=== PATIENT | female | born 1960 | race African-American/Black ===

== ENCOUNTER 2020-11-22 08:54 | Day surgery (SDC) | payer OTHER ==
[~2020-11-22] VITALS: Ht 167.6 cm; Wt 98.0 kg
[~2020-11-22 08:54] MED LIST: CIPROFLOXACIN 0.3% OPHTH SOLUTION 5ML BOTTLE. OD ONE; LIDOCAINE 2% JELLY 6ML IN APPLICATOR. OD ONE; PROPARACAINE 0.5% OPHTH SOLUTION 15ML BOTTLE. OD ONE
[2020-11-22] MEDS ORDERED: LIDOCAINE 1%/PHENYLEPH 1.5% PF OPHTH 1 ML VIAL. ONE (09:04)
[2020-11-22] MEDS ORDERED: NEO/POLYMYX/DEXAMETH OPHTH OINTMENT 3.5GM TUBE. ONE (09:04)
[2020-11-22] MEDS ORDERED: CHONDROIT-SOD-HYALURONATE KIT. ONE (09:04)
[2020-11-22] MEDS: PHENYLEPHRINE 10% OPHTH SOLUTION 5ML BOTTLE. OD SCH ×3 (10:00→10:10)
[2020-11-22] MEDS: CYCLOPENTOLATE 1% OPHTH SOLUTION 2ML BOTTLE. OD SCH ×3 (10:00→10:10)
[2020-11-22] MEDS ORDERED: IV RINGERS,LACTATED 1000ML 1,000 ML IV SCH (10:15)
[2020-11-22] MEDS ORDERED: MIDAZOLAM HCL/PF 2 MG/2 ML VIAL. ONE (11:16)
[2020-11-22 12:00] VITALS: BP 169/82
--- NOTE | 2020-11-22 13:53 | OP ---
DATE OF SURGERY: 11/22/2020 PREOPERATIVE DIAGNOSIS: Senile cataract, right eye. POSTOPERATIVE DIAGNOSIS: Senile cataract, right eye. PROCEDURE: Phacoemulsification with posterior chamber lens implant, right eye. ANESTHESIA: Local with MAC. DESCRIPTION OF PROCEDURE: The patient's anesthetic and dilating drops were applied in the outpatient department. A [place] balloon cuff was used for about 10 minutes. The patient was then brought to the operating room, positioned on the table in the operating room and the right eye was prepped and draped in the usual sterile manner for an intraocular procedure. A lid speculum was placed between the eyelids and the operating microscope was brought into position. Then, it was noted there was very good pupillary dilation. A paracentesis incision was made superotemporally and an injection of ____ made into the anterior chamber. This was followed by an injection of Viscoat. The primary 2.4 mm incision was then made temporally. Capsulorrhexis was performed without difficulty and the lens hydrodissected. The nucleus was then phacoemulsified without difficulty with the phaco handpiece. Remaining cortex was aspirated with the I/A handpiece. Provisc was used to insufflate the bag and a posterior chamber lens of 11.5 diopters was performed. The lens was rotated into the appropriate position and the Provisc was then aspirated with the I/A handpiece. The eye was then insufflated and pressurized and the wound checked for leaks and there were none. The speculum and drape were removed and Maxitrol ointment instilled in the conjunctival sac and the eye was shielded. The patient was taken to recovery room in satisfactory condition. There were no complications and I will see the patient tomorrow in my office. STACEY/KETTY/[facility] [place]: STACEY/serafin TID: [id number]
== END 2020-11-22 13:10 | disposition home or self-care (01) ==
LOC: SURG 08:54
PROVIDERS: ATTEND Ophthalmology
DX: H25.89 Other age-related cataract (principal); I10 Essential (primary) hypertension; M19.90 Unspecified osteoarthritis, unspecified site; F41.9 Anxiety disorder, unspecified; F32.9 Major depressive disorder, single episode, unspecified; Z90.710 Acquired absence of both cervix and uterus; Z98.890 Other specified postprocedural states; Z79.899 Other long term (current) drug therapy; Z88.2 Allergy status to sulfonamides; Z88.1 Allergy status to other antibiotic agents; Z20.822 Contact with and (suspected) exposure to COVID-19
CPT/HCPCS: 66984; 87426; J0171; J2250; J3490; V2632

== ENCOUNTER 2020-12-06 10:25 | Day surgery (SDC) | payer OTHER ==
[~2020-12-06] VITALS: Ht 167.6 cm; Wt 97.0 kg
[~2020-12-06 10:25] MED LIST changes: -CIPROFLOXACIN 0.3% OPHTH SOLUTION 5ML BOTTLE. OD ONE; +CIPROFLOXACIN 0.3% OPHTH SOLUTION 5ML BOTTLE. OS ONE; +IV RINGERS,LACTATED 1000ML 1,000 ML IV SCH; -LIDOCAINE 2% JELLY 6ML IN APPLICATOR. OD ONE; +LIDOCAINE 2% JELLY 6ML IN APPLICATOR. OS ONE; -PROPARACAINE 0.5% OPHTH SOLUTION 15ML BOTTLE. OD ONE; +PROPARACAINE 0.5% OPHTH SOLUTION 15ML BOTTLE. OS ONE
[2020-12-06] MEDS ORDERED: CHONDROIT-SOD-HYALURONATE KIT. ONE (10:41)
[2020-12-06] MEDS ORDERED: NEO/POLYMYX/DEXAMETH OPHTH OINTMENT 3.5GM TUBE. ONE (10:41)
[2020-12-06] MEDS ORDERED: LIDOCAINE 1%/PHENYLEPH 1.5% PF OPHTH 1 ML VIAL. ONE (10:41)
[2020-12-06] MEDS ORDERED: HYDR-2761 PO (11:02)
[2020-12-06] MEDS ORDERED: LISI10TA16 PO (11:02)
[2020-12-06] MEDS ORDERED: GABA600T7 PO (11:02)
[2020-12-06] MEDS ORDERED: HYDR50CA2 PO (11:02)
[2020-12-06] MEDS ORDERED: ESCITALOPRAM OX20 MG PO (11:02)
[2020-12-06] MEDS ORDERED: MELO15TA23 PO (11:02)
[2020-12-06] MEDS ORDERED: MONT10TA49 PO (11:02)
[2020-12-06] MEDS ORDERED: ATOR10TA60 PO (11:02)
[2020-12-06] MEDS: CYCLOPENTOLATE 2% OPHTH SOLUTION 2ML BOTTLE. OS SCH ×3 (11:05→11:15)
[2020-12-06] MEDS: PHENYLEPHRINE 10% OPHTH SOLUTION 5ML BOTTLE. OS SCH ×2 (11:05→11:15)
[2020-12-06 11:08] VITALS: BP 164/77
[2020-12-06] MEDS ORDERED: MIDAZOLAM HCL/PF 2 MG/2 ML VIAL. ONE (12:12)
[2020-12-06] MEDS ORDERED: ePHEDrine PF IN SALINE 50 MG/10 ML SYRINGE. IV ONE (12:12)
[2020-12-06] MEDS ORDERED: NEO/POLYMYX/DEXAMETH OPHTH OINTMENT 3.5GM TUBE. OS ONE (12:23)
[2020-12-06] MEDS ORDERED: LIDOCAINE 1%/PHENYLEPH 1.5% PF OPHTH 1 ML VIAL. IO ONE (12:23)
[2020-12-06] MEDS ORDERED: CHONDROIT-SOD-HYALURONATE KIT. OS ONE (12:23)
[2020-12-06 12:48] VITALS: BP 121/79
--- NOTE | 2020-12-06 13:44 | OP ---
DATE OF SURGERY: 12/06/2020 PREOPERATIVE DIAGNOSIS: Senile cataract, left eye. POSTOPERATIVE DIAGNOSIS: Senile cataract, left eye. PROCEDURE: Phacoemulsification with posterior chamber lens implant, left eye. ANESTHESIA: Topical with MAC. DESCRIPTION OF PROCEDURE: The patient's dilating and anesthetic drops were applied in the outpatient department. A [place] balloon cuff was used for about 10 minutes. The patient was then brought to the operating room and positioned on the table and the left eye was prepped and draped in the usual sterile manner for an intraocular procedure. A lid speculum was placed between the eyelids and the operating scope brought into position. A paracentesis incision was made inferotemporally and ____ injected into the anterior chamber, followed by an injection of Viscoat. The primary 2.4 mm incision was then made and a circular tear capsulorrhexis was made without difficulty. The lens nucleus was hydrodissected, phacoemulsified with the phaco handpiece. The cortex was aspirated with the I/A handpiece. The bag was insufflated with Provisc and a posterior chamber lens placed in the bag without difficulty. The Provisc was aspirated with the I/A handpiece and the wound was hydrated. The eye was pressurized and the wound checked for leaks and there were none. The speculum and drape were removed. Maxitrol ointment instilled into the conjunctival sac and the eye was shielded. The patient was taken to the recovery room in satisfactory condition. There were no complications. I will see her if necessary in my office in 2-3 days. MILES/EARL DR: Maru TID: [id number]
== END 2020-12-06 13:10 | disposition home or self-care (01) ==
LOC: SURG 10:25 → EDUNIT# 12:00 → SURG 13:10
PROVIDERS: ATTEND Ophthalmology
DX: H25.89 Other age-related cataract (principal); I10 Essential (primary) hypertension; M19.90 Unspecified osteoarthritis, unspecified site; F41.9 Anxiety disorder, unspecified; F32.9 Major depressive disorder, single episode, unspecified; Z90.710 Acquired absence of both cervix and uterus; Z98.890 Other specified postprocedural states; Z79.899 Other long term (current) drug therapy; Z88.1 Allergy status to other antibiotic agents; Z88.2 Allergy status to sulfonamides
CPT/HCPCS: 66984; J0171; J3490; V2632; J2250